=== PATIENT | female | born 1995 | race Caucasian/White ===

== ENCOUNTER 2021-05-15 11:46 | Emergency (ER) | payer MEDICAID ==
[~2021-05-15] VITALS: Ht 152.4 cm; Wt 260.0 kg
[2021-05-15 13:20] VITALS: BP 129/93
[2021-05-15] MEDS ORDERED: AMOX-422 PO (15:13)
== END 2021-05-15 15:28 | disposition home or self-care (01) ==
LOC: ER 11:46
DX: H66.91 Otitis media, unspecified, right ear (principal); H92.01 Otalgia, right ear; Z79.2 Long term (current) use of antibiotics
CPT/HCPCS: 99283

== ENCOUNTER 2023-03-14 10:10 | Emergency (ER) | payer MEDICAID ==
[~2023-03-14] VITALS: Ht 149.9 cm; Wt 117.4 kg
[2023-03-14 10:16] VITALS: BP 125/91; PULSE 92; RESP 18; TEMP 97.4; O2SAT 98
[2023-03-14] MEDS ORDERED: acetaminophen 325mg tablet PO ONE (10:40)
[2023-03-14] MEDS ORDERED: amox tr/potassium clavulanate 875/125mg TAB PO ONE (10:40)
[2023-03-14] MEDS ORDERED: NAPR-56 PO (10:49)
[2023-03-14] MEDS ORDERED: AMOX-580 PO (10:49)
== END 2023-03-14 11:30 | disposition home or self-care (01) ==
LOC: ER 10:11
DX: K08.89 Other specified disorders of teeth and supporting structures (principal)
CPT/HCPCS: 99283

== ENCOUNTER 2024-06-15 14:30 | Emergency (ER) | payer BC, MEDICAID ==
[~2024-06-15] VITALS: Ht 152.4 cm; Wt 119.4 kg
[2024-06-15 14:46] VITALS: BP 156/68; PULSE 103; TEMP 97; O2SAT 97
[2024-06-15 15:34] LABS: BASOPHILS # (AUTO) 0.1 X10'3 (0-0.2); BASOPHILS % (AUTO) 0.7 % (0-1); EOSINOPHILS % (AUTO) 0.2 % (0-6); HEMATOCRIT 42.5 % (35.0-45.0); HEMOGLOBIN 14.2 g/dl (12.0-16.0); LYMPHOCYTES # (AUTO) 2.5 X10'3 (1.1-4.8); LYMPHOCYTES % (AUTO) 24.8 % (21-51); MEAN CORPUSCULAR HEMOGLOBIN 29.4 PG (27.0-31.0); MEAN CORPUSCULAR HGB CONC 33.5 g/dL (33.0-36.5); MEAN CORPUSCULAR VOLUME 87.7 FL (78-98); MEAN PLATELET VOLUME 9.7 FL (7.4-10.4); MONOCYTES # (AUTO) 0.7 X10'3 (0-0.9); MONOCYTES % (AUTO) 7.1 % (2-12); NEUTROPHILS # (AUTO) 6.7 X10'3 (1.8-7.7); NEUTROPHILS % (AUTO) 67.2 % (42-75); PLATELET COUNT 230 X10'3 (140-440); RED BLOOD COUNT 4.84 X10'6 (4.20-5.60); RED CELL DISTRIBUTION WIDTH 13.7 % (11.5-14.5); WHITE BLOOD COUNT 9.9 X10'3 (4.5-11.0)
[2024-06-15 15:50] LABS: ALANINE AMINOTRANSFERASE 21 U/L (12-78); ALBUMIN 3.1 G/DL (3.4-5.0); ALBUMIN/GLOBULIN RATIO 0.7 (1.1-1.5); ALKALINE PHOSPHATASE 82 IU/L (46-116); ANION GAP 8 (8-16); ASPARTATE AMINO TRANSFERASE 17 U/L (10-37); BILIRUBIN,TOTAL 0.2 MG/DL (0.1-1.0); BLOOD UREA NITROGEN 4 MG/DL (7-18); BUN/CREATININE RATIO 5.6 (10.0-20.0); CALCIUM 8.5 MG/DL (8.5-10.1); CHLORIDE 104 MMOL/L (99-107); CREATININE 0.72 MG/DL (0.40-0.90); GLUCOSE 109 MG/DL (70-104); LIPASE 40 U/L (16-77); POTASSIUM 3.7 MMOL/L (3.5-5.1); SODIUM 137 MMOL/L (135-145); TOTAL CARBON DIOXIDE 25.2 MMOL/L (24-32); TOTAL PROTEIN 7.8 G/DL (6.4-8.2); eCRCL 84 ML/MIN; eGFR > 90 ML/MIN
[2024-06-15 17:43] VITALS: RESP 16
[2024-06-15 18:23] LABS: URINE HCG NEGATIVE (NEG)
[2024-06-15 18:26] LABS: BILIRUBIN,URINE NEGATIVE (Neg); CLARITY,URINE CLEAR (Clear); COLOR,URINE YELLOW (Yellow); GLUCOSE, URINE NEGATIVE (Neg); KETONES,URINE NEGATIVE (Neg); LEUKOCYTE ESTERASE ,URINE TRACE (Neg); NITRITES, URINE NEGATIVE (Neg); OCCULT BLOOD,URINE NEGATIVE (Neg); PROTEIN,URINE TRACE mg/dl (Neg); UROBILINOGEN,URINE 0.2 E.U/dL (0.2-1.0)
[2024-06-15 18:36] LABS: UA COLLECTION TYPE CLN CATCH MIDSTREAM
[2024-06-15 18:44] LABS: BACTERIA,URINE 2+ /HPF (Neg); CAL OXALATE CRYSTALS 3+ /HPF (NEGATIVE); RBC,URINE 0-2 /HPF (0-2); SQUAMOUS EPITHELIAL CELL,UR MANY /LPF (FEW); WBC,URINE 20-30 /HPF (0-4)
[2024-06-15 18:45] LABS: YEAST MODERATE /HPF (NEGATIVE)
[2024-06-15] MEDS ORDERED: DIF150T PO (19:17)
[2024-06-15] MEDS ORDERED: CEPH-585 PO (19:17)
== END 2024-06-15 19:37 | disposition home or self-care (01) ==
LOC: ER 14:31
DX: N39.0 Urinary tract infection, site not specified (principal); B37.31 Acute candidiasis of vulva and vagina; R11.2 Nausea with vomiting, unspecified; R19.7 Diarrhea, unspecified; Z20.822 Contact with and (suspected) exposure to COVID-19
CPT/HCPCS: 36415; 80053; 81001; 81025; 83690; 85025; 87502; 87503; 87811; 99283